=== PATIENT | female | born 1965 | race American Indian/Alaskan Native ===

== ENCOUNTER 2016-05-02 15:27 | Emergency (ER) | payer OTHER ==
--- NOTE | 2016-05-02 19:23 | Emergency Department Report ---
ED Lower Extremity HPI - General Chief Complaint: Extremity Injury, Lower Stated Complaint: R LEG PAIN Time Seen by Provider: 05/02/16 19:16 Source: patient Mode of arrival: Wheelchair Limitations: No Limitations - History of Present Illness Initial Comments: Patient here reports that she [place] She states she was unaware report. Denies any dizziness or head injury. She has a small abrasion to right silvestre the patient. Tetanus shot is not up-to-date. Pain is 9 out of 10 to foot and ankle. MD Complaint: ankle injury, foot injury -: This evening Injury: Ankle: Right (pain and swelling), Foot: Right (pain and swelling) Type of Injury: inversion Place: street/outdoors Severity: severe Severity scale (0 -10): 9 Improves With: cold therapy Worsens With: weight bearing, movement, palpation Context: walking Associated Symptoms: swelling, ambulatory. denies: snap/pop sensation, numbness , tingling Treatments Prior to Arrival: cold therapy - Related Data Previous Rx's Medication Instructions Recorded Last Taken Type Ibuprofen [Motrin] 600 mg PO Q8H PRN #15 tablet 05/02/16 Unknown Rx Allergies Allergy/AdvReac Type Severity Reaction Status Date / Time No Known Allergies Allergy Unverified 12/22/13 13:47 ED Review of Systems ROS: Stated complaint: R LEG PAIN Other details as noted in HPI Comment: All other systems reviewed and negative Constitutional: denies: chills, fever Respiratory: no symptoms reported Cardiovascular: denies: chest pain, palpitations, edema, syncope Gastrointestinal: denies: abdominal pain, nausea, vomiting, diarrhea Musculoskeletal: joint swelling, arthralgia. denies: back pain, myalgia Skin: denies: rash Neurological: abnormal gait. denies: headache, numbness, paresthesias, confusion, vertigo ED Past Medical Hx - Past Medical History Previous Medical History?: No - Surgical History Past Surgical History?: No - Family History Family history: no significant - Social History Smoking Status: Never Smoker Substance Use Type: None - Medications Home Medications: Home Medications Medication Instructions Recorded Confirmed Last Taken Type Ibuprofen [Motrin] 600 mg PO Q8H PRN #15 tablet 05/02/16 Unknown Rx ED Physical Exam - General Limitations: No Limitations - Head Head exam: Present: atraumatic, normocephalic, normal inspection - Expanded Head Exam Expanded Head exam: Absent: laceration, abrasion, contusion, hematoma, racoon eyes, camacho's sign, general tenderness, tenderness of temporal artery, CSF rhinorrhea , CSF otorrhea - Eye Eye exam: Present: normal appearance, PERRL, EOMI. Absent: nystagmus, periorbital swelling, periorbital tenderness - Neck Neck exam: Present: normal inspection, full ROM. Absent: tenderness, meningismus, lymphadenopathy - Expanded Neck Exam Expanded Neck exam: Absent: tenderness, midline deformity, anterior neck swelling, tracheal deviation - Respiratory Respiratory exam: Present: normal lung sounds bilaterally. Absent: chest wall tenderness - Cardiovascular Cardiovascular Exam: Present: regular rate, normal rhythm, normal heart sounds - GI/Abdominal GI/Abdominal exam: Present: soft, normal bowel sounds. Absent: distended, tenderness, guarding, rebound, rigid - Extremities Exam Extremities exam: Present: tenderness. Absent: full ROM, pedal edema - Expanded Lower Extremity Exam Right Hip exam: Present: normal inspection, full ROM, pelvic stability. Absent: tenderness, swelling, abrasion, laceration, ecchymosis, deformity, crepidus, dislocation, erythema, external rotation, internal rotation, shortening Upper Leg exam: Present: normal inspection, full ROM. Absent: tenderness, swelling, abrasion, laceration, ecchymosis, deformity, crepidus, dislocation, erythema Knee exam: Present: normal inspection, full ROM, full knee extension. Absent: tenderness, swelling, abrasion, laceration, ecchymosis, deformity, crepidus, dislocation, erythema, effusion, pain w/ pronation/supination, posterior draw sign, pain/laxity with valgus, pain/laxity with varus Lower Leg exam: Present: normal inspection, full ROM, abrasion (anterior distal leg), Evans's sign. Absent: tenderness, swelling, laceration, ecchymosis, deformity, crepidus, dislocation, erythema, palpable cord Ankle exam: Present: normal inspection, tenderness, swelling. Absent: full ROM , abrasion, laceration, ecchymosis, deformity, crepidus, dislocation, erythema Foot/Toe exam: Present: normal inspection, full ROM, tenderness. Absent: swelling, abrasion, laceration, ecchymosis, deformity, crepidus, dislocation, erythema, amputation, puncture wound, foreign body, calcaneal tenderness, tenderness at base of 5th metatarsal, nail avulsion, subungual hematoma Neuro vascular tendon exam: Present: no vascular compromise, significant pain with passive ROM of distal joint. Absent: pulse deficit, abnormal cap refill, motor deficit, sensory deficit, tendon deficit, extremity cold to touch, pallor , abnormal 2-point discrimination, decreased fine/light touch, foot drop, peroneal nerve deficit Gait: Positive: observed and limited by pain - Back Exam Back exam: Present: normal inspection, full ROM. Absent: tenderness, CVA tenderness (R), CVA tenderness (L), muscle spasm, paraspinal tenderness, vertebral tenderness, rash noted - Neurological Exam Neurological exam: Present: alert, oriented X3, abnormal gait (abnormal gait from right ankle and foot injury), reflexes normal - Psychiatric Psychiatric exam: Present: normal affect, normal mood - Skin Skin exam: Present: warm, dry, normal color, abrasion (superficial abrasion noted to right distal anterior leg) ED Course Vital Signs 05/02/16 05/02/16 15:48 20:03 Temperature 98.7 F Pulse Rate 66 Respiratory 16 18 Rate Blood Pressure 129/76 O2 Sat by Pulse 100 Oximetry - Reevaluation(s) Reevaluation #1: 05/02/16 21:32 She received Motrin 800 mg by mouth to manage pain in emergency room. She received Boostrix because her tetanus shot is not up-to-date. - Consultations Consultation #1: 05/02/16 21:[address] Lamar and inform them of x-ray results and he wants patient to have ankle stirrup and crutches and to follow-up with him in his office on Thursday. - Orthopedic Splinting/Casting Injury #1 Side: right Lower Extremity Injury Location: ankle, foot Lower Extremity Immobilizer: stirrup splint Other Orthopedic Equipment: crutches ED Lower Extremity MDM - Radiology Data Radiology results: report reviewed Xray results of right ankle revealed soft tissue swelling is seen over the lateral malleolus. No definite fracture is identified in the lateral malleolus. X-ray results of right foot revealed subtle lucency is seen in the plantar aspect of the posterior calcaneus. If there is concern for fracture and dislocation, consider CT scan for evaluation. It is nontender to calcaneus area - Medical Decision Making ED course:See Procedure note for details on splinting. I Discussed with patient based on my physical findings, x-ray results and orthopedic recommendation that she'll need to have ankle stirrup and crutches. I discussed with her that she has ankle sprain and that she will need to keep splint on until follow-up with orthopedic for further evaluation and treatment. Pain RICE protocol to patient. She was given Motrin 800 mg by mouth in emergency room for pain. She was also given Boostrix due to abrasion to right leg. Abraised area cleansed with normal saline and antibiotic ointment placed the site. X-rays had suggested that this probably secondary to be in the plantar aspect of posterior calcaneus. Patient is nontender to palpate at right calcaneus area. Discussed with Dr. Sanders. Condition discharged home with prescription for Motrin and to follow-up with orthopedic on Thursday. Critical care attestation.: If time is entered above; I have spent that time in minutes in the direct care of this critically ill patient, excluding procedure time. ED Disposition Clinical Impression: Arthralgia of multiple sites Sprain of ankle, right Qualifiers: Encounter type: initial encounter Involved ligament of ankle: unspecified ligament Qualified Code(s): S93.401A - Sprain of unspecified ligament of right ankle, initial encounter Sprain of foot, right Qualifiers: Encounter type: initial encounter Qualified Code(s): S93.601A - Unspecified sprain of right foot, initial encounter Abrasion of leg, right Qualifiers: Encounter type: initial encounter Qualified Code(s): S80.811A - Abrasion, right lower leg, initial encounter Disposition: DISCHARGED TO HOME OR SELFCARE Is pt being admited?: No Does the pt Need Aspirin: No Condition: Stable Instructions: Arthralgia (ED), Ankle Stirrup Splint (ED), Ankle Exercises (GEN) , Ankle Sprain (ED), Foot Sprain (ED), RICE Therapy (ED), Abrasion (ED) Additional Instructions: Please rest, elevate, compress and ice area. Motrin is prescribed. Orthopedic doctor as instructed. Do Not remove the splint and use crutches as instructed Prescriptions: Ibuprofen [Motrin] 600 mg PO Q8H PRN #15 tablet PRN Reason: Pain Referrals: CARLOS AGUIRRE MD [Staff Physician] - 05/05/16 Forms: Work/School Release Form(ED)
[2016-05-02] MEDS ORDERED: BOOSTRIX IM ONE (19:27)
[2016-05-02] MEDS ORDERED: MOTRIN PO ONE (19:27)
--- NOTE | 2016-05-02 21:01 | XRay Report ---
FINAL REPORT EXAM: XR ANKLE 3 RT HISTORY: rt ankle injury TECHNIQUE: Right ankle three views 3 images PRIORS: None. FINDINGS: Bone mineralization appears within normal limits. There is subtle lucency in the plantar aspect of the posterior calcaneus seen in the lateral projection. Soft tissue swelling is seen over the lateral malleolus. IMPRESSION: 1. Soft tissue swelling is seen over the lateral malleolus. No definite fracture is identified in the lateral malleolus. If symptoms persist, consider repeat study in 10-14 days to assess for a currently radiographically occult fracture. 2. Subtle lucency is seen in the plantar aspect of the posterior calcaneus. If there is concern for fracture in this location, consider CT for further evaluation.
--- NOTE | 2016-05-02 21:13 | XRay Report ---
FINAL REPORT EXAM: XR FOOT 3 RT HISTORY: rt foot pain after falling TECHNIQUE: Right foot three views 3 images PRIORS: None. FINDINGS: Bone mineralization appears within normal limits. In lateral view, there is subtle lucency in the plantar aspect of the posterior calcaneus. No other fracture is identified. Metallic dual re-is seen obscuring the evaluation of the 2nd toe. IMPRESSION: 1. Lucency in the plantar aspect of the posterior calcaneus is noted. If there is concern for acute fracture in this location, consider CT for further evaluation.
[2016-05-02 22:26] VITALS: BP 136/72
== END 2016-05-02 22:05 | disposition home or self-care (01) ==
LOC: ED 15:27
DX: S80.811A Abrasion, right lower leg, initial encounter (principal); M79.1 Myalgia; S93.401A Sprain of unspecified ligament of right ankle, initial encounter; S93.601A Unspecified sprain of right foot, initial encounter; W01.0XXA Fall on same level from slipping, tripping and stumbling without subsequent striking against object, initial encounter; Y93.9 Activity, unspecified; Y92.9 Unspecified place or not applicable; Y99.9 Unspecified external cause status
CPT/HCPCS: 90471; 90715